=== PATIENT | male | born 1950 | race Caucasian/White ===

== ENCOUNTER → 2017-03-09 | Outpatient (CLI) | payer BC, MEDICARE ==
--- NOTE | 2017-03-09 15:52 | CT ---
EXAMINATION: CT knee and right lower leg HISTORY: Pain COMPARISON: None TECHNIQUE: Axial CT images obtained through the right knee and right lower leg without contrast. Cor onal and sagittal reconstructions obtained. FINDINGS: There is no acute osseous abnormality, dislocation, or fracture identified. Bone mineraliz ation and joint spaces appear grossly preserved. Mild osteophyte formation is noted within the right knee. No significant joint effusion. Generalized soft tissue swelling with skin thickening is noted along the medial aspect of the lower leg just below the knee. No definite organized fluid collectio n identified. There is also mild subcutaneous edema underlying the lateral malleolus. IMPRESSION: 1. Mild soft tissue swelling along the medial aspect of the knee and upper right leg. 2. No acute osseous abnormality. 3. Mild degenerative changes within the right knee.
== END ==
LOC: MW.DI 13:41
PROVIDERS: ATTEND Family Medicine
DX: M25.561 Pain in right knee (principal); M79.89 Other specified soft tissue disorders
CPT/HCPCS: 73700-26-RT; 73700-RT

== ENCOUNTER 2018-01-31 07:20 | Day surgery (SDC) | payer MEDICARE, BC ==
[~2018-01-31 07:20] MED LIST: Lactated Ringers 1,000 ML IV SCH; Midazolam 1 MG/ML 2 ML SDV ONE; Propofol 200 MG/20 ML SDV ONE; Sodium Chloride 0.9% 10 ML Syringe FLUSH PRN; Sodium Chloride 0.9% 2.5 ML Syringe FLUSH PRN; fentaNYL 100 MCG/2 ML SDV ONE
--- NOTE | 2018-01-31 07:53 | PCM.PREANE ---
Preanesthetic Assessment - Anesthesia/Transfusion/Family Hx Anesthesia History: Prior Anesthesia Without Reaction Other Type of Anesthesia Reaction Comment: Reports slow to awaken with last EGD and colonoscopy Family History of Anesthesia Reaction: No Transfusion History: No Prior Transfusion(s) Intubation History: Unknown - Review of Systems General: No Symptoms Pulmonary: No Symptoms Cardiovascular: No Symptoms Gastrointestinal: Constipation, Diarrhea Neurological: No Symptoms Other: Reports: None - Physical Assessment O2 Sat by Pulse Oximetry: 95 Respiratory Rate: 16 Vital Signs: Last Vital Signs Temp 36.1 C 01/31/18 07:36 Pulse 87 01/31/18 07:36 Resp 16 01/31/18 07:36 BP 137/84 01/31/18 07:36 Pulse Ox 95 01/31/18 07:36 Height: 1.78 m Weight: 89.811 kg ASA Class: 2 Mental Status: Alert & Oriented x3 Airway Class: Mallampati = 2 Dentition: Reports: Normal Dentition, [place](s) (x4 (back side)) Thyro-Mental Finger Breadths: 3 Mouth Opening Finger Breadths: 2 ROM/Head Extension: Full Lungs: Clear to Auscultation, Normal Respiratory Effort Cardiovascular: Regular Rate, Regular Rhythm - Allergies Allergies/Adverse Reactions: Allergies Allergy/AdvReac Type Severity Reaction Status Date / Time ciprofloxacin Allergy Rash Verified 01/14/18 10:48 metoclopramide HCl Allergy "lip Verified 01/14/18 10:48 [From Reglan] smacking" moxifloxacin HCl Allergy Hives Verified 01/14/18 10:48 [From Avelox] MRI contrast media Allergy Itching Uncoded 01/14/18 10:48 - Blood Blood Available: No - Anesthesia Plan Pre-Op Medication Ordered: None - Acknowledgements Anesthesia Type Planned: MAC Pt an Appropriate Candidate for the Planned Anesthesia: Yes Alternatives and Risks of Anesthesia Discussed w Pt/Guardian: Yes Pt/Guardian Understands and Agrees with Anesthesia Plan: Yes PreAnesthesia Questionnaire HEENT History: Reports: Cataract Other HEENT History: hx of Fuchs Dystrophy, uses reading glasses Cardiovascular History: Reports: Other (See Below) (h/o HTN and high cholesterol , now ok without medications) Gastrointestinal History: Reports: Chronic Constipation, Colon Polyp, GERD, Hiatal Hernia, Irritable Bowel Syndrome Genitourinary History: Reports: BPH Musculoskeletal History: Reports: Arthritis, Fracture Other Musculoskeletal History: hx of fx ankle Oncologic (Cancer) History: Reports: Other (See Below) Other Oncologic History: hx of Angiosarcoma right knee- removed 2 years ago, 7 weeks of radiation therapy - Past Surgical History Head Surgeries/Procedures: Reports: None HEENT Surgical History: Reports: Cataract Surgery, Tonsillectomy, Visual, Other (See Below) Other HEENT Surgeries/Procedures: hx of Corneal Transplant right eye GI Surgical History: Reports: Appendectomy, Cholecystectomy, Colonoscopy, EGD Male Surgical History: Reports: Vasectomy Musculoskeletal Surgical History: Reports: Other (See Below) Other Musculoskeletal Surgeries/Procedures:: hx of removal of Angiosarcoma right knee - SUBSTANCE USE Smoking Status *Q: Never Smoker Second Hand Smoke Exposure: No Days Per Week of Alcohol Use: 0 Number of Drinks Per Day: 0 Total Drinks Per Week: 0 Recreational Drug Use History: No - HOME MEDS Home Medications: Home Meds Multivitamin [Multivitamins] 1 tab PO DAILY 11/29/15 [History] Calcium Carbonate [Tums Extra Strength] 1 tab PO BEDTIME 01/14/18 [History] Fluorometholone [Fluorometholone 0.1% Ophth Susp] 1 drop EYERT BID 01/14/18 [ History] Guar Gum [Benefiber] 1 tab PO DAILY 01/14/18 [History] L.acidoph,Paracasei, B.lactis [Probiotic] 1 cap PO DAILY 01/14/18 [History] Omeprazole 20 mg PO DAILY 01/14/18 [History] Oxybutynin 5 mg PO DAILY 01/25/18 [History] - CURRENT (IN HOUSE) MEDS Current Meds: Current Medications Lactated Ringer's (Ringers, Lactated) 1,000 mls @ 125 mls/hr IV ASDIRECTED FABIENNE Last Admin: 01/31/18 07:32 Dose: 125 mls/hr Sodium Chloride (Saline Flush) 10 ml FLUSH ASDIRECTED PRN PRN Reason: Keep Vein Open Sodium Chloride (Saline Flush) 2.5 ml FLUSH ASDIRECTED PRN PRN Reason: Keep Vein Open Sodium Chloride (Saline Flush) 10 ml FLUSH ASDIRECTED PRN PRN Reason: Keep Vein Open Sodium Chloride (Saline Flush) 2.5 ml FLUSH ASDIRECTED PRN PRN Reason: Keep Vein Open Discontinued Medications Fentanyl (Sublimaze) Confirm Administered Dose 100 mcg .ROUTE .STK-MED ONE Stop: 01/31/18 07:20 Midazolam HCl (Versed 1 Mg/Ml) Confirm Administered Dose 2 mg .ROUTE .STK-MED ONE Stop: 01/31/18 07:20 Propofol (Diprivan 20 Ml) Confirm Administered Dose 200 mg .ROUTE .STK-MED ONE Stop: 01/31/18 07:20
[2018-01-31] MEDS ORDERED: Propofol 200 MG/20 ML SDV ONE (09:25)
--- NOTE | 2018-01-31 09:47 | PCM.OPNOTE ---
- General Post-Op/Procedure Note Date of Surgery/Procedure: 01/31/18 Operative Procedure(s): Colonoscopy Findings: Normal colonoscopy Pre Op Diagnosis: History of colon polyps, change in bowel habits Post-Op Diagnosis: Normal colonoscopy Anesthesia Technique: MAC Primary Surgeon: Elif Patel Condition: Good
--- NOTE | 2018-01-31 10:16 | PCM48HPAN ---
Post Anesthesia Note - EVALUATION WITHIN 48HRS OF ANESTHETIC Vital Signs in Normal Range: Yes Patient Participated in Evaluation: Yes Respiratory Function Stable: Yes Airway Patent: Yes Cardiovascular Function Stable: Yes Hydration Status Stable: Yes Pain Control Satisfactory: Yes Nausea and Vomiting Control Satisfactory: Yes Mental Status Recovered: Yes Resp Rate: 15 - COMMENTS/OBSERVATIONS Free Text/Narrative:: no anesthesia problems
[2018-01-31 10:32] VITALS: BP 142/85
--- NOTE | 2018-02-01 08:43 | OR ---
SURGEON: ELIF PATEL MD DATE OF PROCEDURE: 01/31/2018 PREOPERATIVE DIAGNOSIS: History of colon polyps. POSTOPERATIVE DIAGNOSIS: Normal colonoscopy. PROCEDURE PERFORMED: Colonoscopy. ENDOSCOPIST: Elif Patel MD. ANESTHESIA: MAC EXTENT OF EXAM: To the cecum. INSTRUMENT USED: Olympus colonoscope. PREPARATION: Good. LIMITATIONS: None. INDICATION FOR EXAMINATION: The patient is a 67-year-old male with a previous history of colon polyps. The patient and I discussed the need for a repeat colonoscopy. We discussed the procedure, expected perioperative course, and risks including bleeding, infection, or damage to surrounding structures including perforation. The patient verbalized understanding and wishes to proceed. PROCEDURE IN DETAIL: The patient was brought to the endoscopy suite and placed in the left lateral decubitus position. A time-out was completed verifying the patient's name, age, date of , allergies, and procedure to be performed. Monitored anesthesia care was induced and continuous oxygen was provided via nasal cannula throughout the procedure. After adequate sedation was achieved, a digital rectal exam was performed. This exam was within normal limits. A well-lubricated colonoscope was inserted in the rectum and advanced under direct visualization to the level of cecum. The cecum was identified by both visual and anatomic landmarks. Photograph taken of cecal cap as well as with the scope in the retroflexed position. The scope was then fully withdrawn while examining the color, texture, anatomy, and integrity of the mucosa from the cecum to the anal canal. The patient was found to have normal colonic mucosa. The scope was then brought into the rectum and retroflexed to allow visualization of the anal canal opening. This appeared normal and a photograph was taken. The scope was then straightened out and removed from the patient. The cecum to anus time was 6 minutes. The patient tolerated procedure well and was taken to PACU in stable condition. ENDOSCOPIC DIAGNOSIS: Normal colonoscopy. RECOMMENDATIONS: The patient has a history of IBS. If he would like, he can come back to clinic to discuss his options. Otherwise, the patient can follow up in clinic in 5 years for a repeat colonoscopy. SANTIAGO NUÑEZ /[id number]
== END 2018-01-31 10:17 | disposition home or self-care (01) ==
LOC: MW.SDS 07:20
PROVIDERS: ATTEND Surgery
DX: R19.4 Change in bowel habit (principal); J30.9 Allergic rhinitis, unspecified; M19.90 Unspecified osteoarthritis, unspecified site; H26.9 Unspecified cataract; K82.8 Other specified diseases of gallbladder; K21.9 Gastro-esophageal reflux disease without esophagitis; K59.09 Other constipation; K44.9 Diaphragmatic hernia without obstruction or gangrene; I10 Essential (primary) hypertension; M17.11 Unilateral primary osteoarthritis, right knee; M25.561 Pain in right knee; N42.9 Disorder of prostate, unspecified; Z79.899 Other long term (current) drug therapy; Z88.1 Allergy status to other antibiotic agents; Z88.8 Allergy status to other drugs, medicaments and biological substances; Z91.041 Radiographic dye allergy status; Z90.49 Acquired absence of other specified parts of digestive tract; Z90.89 Acquired absence of other organs; Z98.52 Vasectomy status; Z86.010 Personal history of colon polyps
CPT/HCPCS: 45378; J2250; J3010; J7120; 00811; J2704

== ENCOUNTER 2019-01-15 17:40 | Emergency (ER) | payer MEDICARE, BC ==
[2019-01-15 18:15] VITALS: BP 161/103
[2019-01-15] MEDS ORDERED: Ketorolac 60 MG/2 ML SDV IM ONE (18:20)
--- NOTE | 2019-01-15 18:23 | EDM.PDOC ---
ED HPI GENERAL MEDICAL PROBLEM - General Chief Complaint: Back Pain or Injury Stated Complaint: back pain Time Seen by Provider: 01/15/19 18:20 Source of Information: Reports: Patient History Limitations: Reports: No Limitations - History of Present Illness INITIAL COMMENTS - FREE TEXT/NARRATIVE: HISTORY AND PHYSICAL: History of present illness: Patient is a 68-year-old male here with complaint of back pain. He states that he tweaked his back 3 weeks ago was getting out of the shower. He was doing some exercises and stretching and thought it was getting better until yesterday he was doing yard work and raking leaves when he tweaked his back again. He states he feels a lot of tightness on the left side of his low back. He states his left butt cheek feels numb but denies any radiation down the leg, saddle anesthesia, lower extremity weakness, foot drop, fevers or chills. He has taken ibuprofen at home without relief Review of systems: As per history of present illness and below otherwise all systems reviewed and negative. Past medical history: As per history of present illness and as reviewed below otherwise noncontributory. Surgical history: As per history of present illness and as reviewed below otherwise noncontributory. Social history: No reported history of drug or alcohol abuse. Family history: As per history of present illness and as reviewed below otherwise noncontributory. Physical exam: General: Patient sitting comfortably in no acute distress and nontoxic appearing HEENT: Atraumatic, normocephalic, pupils reactive, negative for conjunctival pallor or scleral icterus, mucous membranes moist, throat clear, neck supple, nontender, trachea midline. No meningeal signs. Lungs: Clear to auscultation, breath sounds equal bilaterally, chest nontender. Heart: S1S2, regular, negative for clicks, rubs, or overt murmur. Abdomen: Soft, nondistended, nontender. Negative for masses or hepatosplenomegaly. Negative for costovertebral tenderness. No rigidity, rebound , guarding. Pelvis: Stable nontender. Genitourinary: Deferred. Rectal: Deferred. Spine: No vertebral tenderness or step offs to palpation. Left lumbar paraspinal tenderness and muscle spasm noted. Extremities: Atraumatic, negative for cords or calf pain. Neurovascular unremarkable. Neuro: Awake, alert, oriented. Cranial nerves II through XII unremarkable. Cerebellum unremarkable. Motor and sensory unremarkable throughout. Exam nonfocal. Notes: Diagnostics: x-ray lumbar spine Therapeutics: 60mg Toradol IM 60mg Norflex IM Prescriptions: Impression: Back pain Plan: 1. Take medication as needed as instructed 2. Follow up with primary care provider 3. Return to ED as needed as discussed Definitive disposition and diagnosis as appropriate pending reevaluation and review of above. Back Pain Score (Numeric/FACES): 5 - Related Data Allergies Allergy/AdvReac Type Severity Reaction Status Date / Time ciprofloxacin Allergy Rash Verified 01/15/19 18:14 metoclopramide HCl Allergy "lip Verified 01/15/19 18:14 [From Reglan] smacking" moxifloxacin HCl Allergy Hives Verified 01/15/19 18:14 [From Avelox] MRI contrast media Allergy Itching Uncoded 01/15/19 18:14 Home Meds: Home Meds Atenolol 0.5 tab PO DAILY 01/15/19 [History] Finasteride 5 mg PO DAILY 01/15/19 [History] Omeprazole 20 mg PO BID 01/15/19 [History] Orphenadrine [Norflex] 100 mg PO BID PRN #12 tab 01/15/19 [Rx] Tamsulosin [Flomax] 1 tab PO DAILY 01/15/19 [History] traMADol [Ultram] 50 mg PO Q6H PRN #12 tab 01/15/19 [Rx] Past Medical History HEENT History: Reports: Cataract Other HEENT History: hx of Fuchs Dystrophy, uses reading glasses Cardiovascular History: Reports: Other (See Below) (h/o HTN and high cholesterol , now ok without medications) Gastrointestinal History: Reports: Chronic Constipation, Colon Polyp, GERD, Hiatal Hernia, Irritable Bowel Syndrome Genitourinary History: Reports: BPH Musculoskeletal History: Reports: Arthritis, Fracture Other Musculoskeletal History: hx of fx ankle Oncologic (Cancer) History: Reports: Other (See Below) Other Oncologic History: hx of Angiosarcoma right knee- removed 2 years ago, 7 weeks of radiation therapy - Past Surgical History Head Surgeries/Procedures: Reports: None HEENT Surgical History: Reports: Cataract Surgery, Tonsillectomy, Visual, Other (See Below) Other HEENT Surgeries/Procedures: hx of Corneal Transplant right eye GI Surgical History: Reports: Appendectomy, Cholecystectomy, Colonoscopy, EGD Male Surgical History: Reports: Vasectomy Musculoskeletal Surgical History: Reports: Other (See Below) Other Musculoskeletal Surgeries/Procedures:: hx of removal of Angiosarcoma right knee ED ROS GENERAL - Review of Systems Review Of Systems: ROS reveals no pertinent complaints other than HPI. ED EXAM,LOWER BACK PAIN/INJURY - Physical Exam Exam: See Below (see dictation) Course - Vital Signs Last Recorded V/S: Last Vital Signs Temp 96.8 F 01/15/19 18:09 Pulse 66 01/15/19 18:09 Resp 18 01/15/19 18:09 BP 161/103 H 01/15/19 18:09 Pulse Ox 96 01/15/19 18:09 - Orders/Labs/Meds Orders: Active Orders 24 hr Category Date Time Status Orphenadrine [Norflex] Med 01/15/19 18:30 Active 60 mg IM Q12H Medication Orders Orphenadrine Citrate (Norflex) 60 mg IM Q12H FABIENNE Last Admin: 01/15/19 18:36 Dose: 60 mg Meds: Medications Generic Name Dose Route Start Last Admin Trade Name Freq PRN Reason Stop Dose Admin Orphenadrine Citrate 60 mg 01/15/19 18:30 01/15/19 18:36 Norflex IM 60 mg Q12H FABIENNE Administration Discontinued Medications Generic Name Dose Route Start Last Admin Trade Name Freq PRN Reason Stop Dose Admin Ketorolac Tromethamine 60 mg 01/15/19 18:20 01/15/19 18:37 Toradol IM 01/15/19 18:21 60 mg ONETIME ONE Administration Departure - Departure Time of Disposition: 19:31 Disposition: Home, Self-Care 01 Condition: Good Clinical Impression: Back pain - Discharge Information Prescriptions: Orphenadrine [Norflex] 100 mg PO BID PRN #12 tab PRN Reason: Muscle Spasm traMADol [Ultram] 50 mg PO Q6H PRN #12 tab PRN Reason: Pain/Fever Referrals: PCP,None [Primary Care Provider] - Forms: ED Department Discharge Additional Instructions: The following information is given to patients seen in the emergency department who are being discharged to home. This information is to outline your options for follow-up care. We provide all patients seen in our emergency department with a follow-up referral. The need for follow-up, as well as the timing and circumstances, are variable depending upon the specifics of your emergency department visit. If you don't have a primary care physician on staff, we will provide you with a referral. We always advise you to contact your personal physician following an emergency department visit to inform them of the circumstance of the visit and for follow-up with them and/or the need for any referrals to a consulting specialist. The emergency department will also refer you to a specialist when appropriate. This referral assures that you have the opportunity for follow-up care with a specialist. All of these measure are taken in an effort to provide you with optimal care, which includes your follow-up. Under all circumstances we always encourage you to contact your private physician who remains a resource for coordinating your care. When calling for follow-up care, please make the office aware that this follow-up is from your recent emergency room visit. If for any reason you are refused follow-up, please contact the [facility] Emergency Department at and asked to speak to the emergency department charge nurse. [facility] [address] [place] [id number] [place] [address] 1. Take medication as needed as instructed. Do not take while driving as it may make you drowsy. 2. Follow up with primary care provider 3. Return to ED as needed as discussed - My Orders Last 24 Hours: My Active Orders 01/15/19 18:30 Orphenadrine [Norflex] 60 mg IM Q12H - Assessment/Plan Last 24 Hours: My Active Orders 01/15/19 18:30 Orphenadrine [Norflex] 60 mg IM Q12H
--- NOTE | 2019-01-15 19:26 | CR ---
INDICATION: Back pain TECHNIQUE: Lumbar spine 3 view COMPARISON: None FINDINGS: Bones: Minimal rightward curvature mid lumbar spine. 3 millimeter anterolisthesis at L4-5. Joints: Disc space narrowing at L2-3, L4-5 and L5-S1. Facet hypertrophy at L4-5 and L5-S1. Soft tissues: Right upper quadrant surgical clips. 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 Dictated by Ruiz Acuna MD @ Jan 15 2019 7:22PM Signed by Dr. Ruiz Acuna @ Jan 15 2019 7:24PM
== END 2019-01-15 19:50 | disposition home or self-care (01) ==
LOC: MW.ED 17:40
DX: M54.9 Dorsalgia, unspecified (principal); I10 Essential (primary) hypertension; K21.9 Gastro-esophageal reflux disease without esophagitis; Z88.1 Allergy status to other antibiotic agents; Z88.8 Allergy status to other drugs, medicaments and biological substances; Z79.899 Other long term (current) drug therapy
CPT/HCPCS: 72100; 96372; 99283; J1885; J2360